=== PATIENT | male | born 1955 | race Caucasian/White ===

== ENCOUNTER 2019-06-27 11:31 | Inpatient (IN) ==
[2019-06-27 11:49] VITALS: BMI 29.0
--- NOTE | 2019-06-27 12:10 | DR.ABDMALE ---
HPI Time seen Time Seen by Provider: 06/27/19 11:56 PCP Primary Care Physician: PAMELA GUERRA HPI comment HPI Comment: PATIENT IS 64YR OLD WHITE MALE IN THE EMERGENCY ROOM WITH LLQ ABDOMINAL PAIN TIMES ONE DAY. PATIENT SAID PAIN STARTED A PERSISTENT DULL ACHE IN LLQ AREA. 04:00AM TODAY, SEVERE LLQ ANDOMINAL PAIN RADIATING TO THE BACK STARTED. PAIN WAS 10/10. PATIET TOOK HYDROCORDONE BEFORE COMING. NO FEVER OR DYSURIA. Complaint Chief Complaint Doctors Comments: ABDOMINAL PAIN Chief Complaint:: PT HAD A SUDDEN ONSET OF DULL ACHING CONSTANT LLQ PAIN THAT STARTED WEDNESDAY AFTERNOON. THIS MORNING AROUND 1AM PT STATES THAT PAIN SUDDENLY BECAME SEVERE AND IS NOW DESCRIBED CONSTANT SHARP STABBING. PAIN IS ALLEVIATED BY SITTING STILL AND WORSENED WITH GOING FROM SITTING TO STANDING POSITION. Self Treatment fo Chief Complaint: PT TOOK HYDROCODONE AROUND 8AM THIS MORNING WITH NO RELIEF Reviewed Nurses Notes Review: Yes Mode of arrival Mode of Arrival: Ambulatory Timing Onset of Chief Complaint: 06/27/19 Duration Duration: Constant Duration: Days Location Location: LLQ Severity Severity: Severe Context Onset: Suddenly and At Rest History of: Urolithiasis Modifying factors Worsening Factors: Movement Improving Factors: Lying Still Associated signs and symptoms Associated Signs and Symptoms: None Other history Other History: CHRONIC BACK PAIN. PMH PMH Past Medical History: Yes Past Medical History: GERD and Hypertension Past Medical History Comment: CERVICALGIA, DEGENERATIVE DISC DISEASE Past Surgical History: Yes Past Surgical History Comment: BACK SURGERY, KNEE SURGERY Family History History of Family Medical Conditions: Yes Family Medical History: Hypertension Social History Does patient currently use any type of tobacco product: Yes Have you used tobacco products in the last 12 months: Yes Type of Tobacco Use: Cigarettes Does any household member use tobacco: No Alcohol Use: None Do you use any recreational Drugs:: No Lives With: Family Lives Where: Home infectious screening In the last 2 months have you had wt loss of >10#?: NO Have you had fever, night sweats or hemotysis?: No Have you traveled outside the country in the last 6 months?: No Isolation: Standard ROS Review of Systems Constitutional: No Symptoms Reported and See HPI; negative Fever, Weakness and Fatigue Eyes: No Symptoms Reported and See HPI ENTM: No Symptoms Reported and See HPI Respiratoy: No Symptoms Reported and See HPI; negative Short of Breath and Wheezing Cardiovascular: No Symptoms Reported and See HPI; negative Chest Pain, Edema and Palpitations Gastrointestinal/Abdominal: See HPI and Abdominal Pain; negative Constipation, Diarrhea, Nausea and Vomiting Genitourinary: No Symptoms Reported and See HPI; negative Dysuria, Frequency and Hematuria Neurological: No Symptoms Reported; negative Headache, Weakness and Dizziness Musculoskeletal: No Symptoms Reported and See HPI; negative Back Pain and Muscle Pain Integumentary: No Symptoms Reported and See HPI; negative Change in Color, Rash and Juandice Hematologic/Lymphatic: No Symptoms Reported and See HPI; negative Easy Bleeding, Easy Bruising and Swollen Glands Endocrine: No Symptoms Reported and See HPI; negative Increased Thirst and In creased Urine Psychiatric: No Symptoms Reported and See HPI All Other Systems: Reviewed and Negative PE Vital Signs Vital Signs: Temp Pulse Pulse Resp BP BP Pulse Ox 06/27/19 15:22 98 F 54 L 20 153/91 98 06/27/19 14:30 50 L 159/80 95 06/27/19 14:15 52 L 95 06/27/19 14:00 56 L 171/88 94 L 06/27/19 13:45 50 L 94 L 06/27/19 13:30 48 L 159/96 94 L 06/27/19 13:15 49 L 95 06/27/19 13:00 52 L 159/89 95 06/27/19 12:45 51 L 95 06/27/19 12:31 167/80 93 L 06/27/19 12:15 55 L 95 06/27/19 12:00 57 L 157/89 95 06/27/19 11:45 64 95 06/27/19 11:44 70 154/91 93 L 06/27/19 11:43 98.8 F 67 22 154/91 94 L 06/27/19 11:42 62 95 General Limitations: No Limitations General Appearance: Alert and In No Apparent Distress Head Head Exam: Normal Inspection and Atraumatic Eyes Eye exam: Normal Appearance, PERRL and EOMI; negative Scleral Icterus and Conjunctival Injection ENT ENT Exam: Normal Exam, Normal Oropharynx, Normal External Ear Exam and TM's Normal Bilaterally Neck Neck Exam: Normal Inspection and Trachea Midline; negative Tenderness and Lymphadenopathy Chest Chest Inspection: Normal Inspection and Symmetric Chest Wall Rise; negative Tenderness Respiratory Respiratory Exam: Normal Lung Sounds Bilat; negative Accessory Muscle Use, Chest Wall Tenderness and Respiratory Distress Respiratory Exam: Bilateral: Clear to Auscultation Cardiovascular Cardiovascular Exam: Regular Rate, Normal Rhythm and Normal Heart Sounds; negative Systolic Murmur and Diastolic Murmur Abdominal Exam Abdominal Exam: Normal Inspection, Normal Bowel Sounds, Soft, Distention, Tenderness and Dimnished Bowel Sounds Abdominal Tenderness: LUQ, LLQ and Severe Rectal Rectal Exam: Deferred Back Back Exam: Normal Inspection; negative Tenderness, (R) CVA Tenderness, (L) CVA Tenderness, Paraspinal Tenderness and Vertebral Tenderness Extremeties Extremities Exam: Normal Inspection Exam: Male: Deferred Neurologic Neurological Exam: Alert, Oriented X3 and CN II-XII Intact Psychiatric Psychiatric Exam: Normal Affect and Normal Mood Skin Skin Exam: Warm, Dry, Intact and Normal Color MDM Additional Information Obtained From Additional information provided by: Family Differential Diagnosis Differential Diagnosis: Bowel Obstruction, Cholcystitis, Cholelethiasis, Constipation, Diverticular disease, Gastritus/PUD, Hernia, Inflammatory BD, Ischemic Bowel, Pancreatitis, Urinary tract infection and Urolithiasis COURSE Treatment Treatment: SEE ORDERS. Consultation Consultation Comments: SURGICAL CONSULT, DR. CORTES. HE IS IN ER EVALUATING PATIENT. SEE HIS NOTE. HE WANT PATIENT ADMITTED FOR OBSERVATION. DR. JONES, PCP ACCEPTED PATIENT FOT ADMISSION. ADMISSION ORDERS DONE. Education/Counseling Education/Counseling: Patient Educated On: Diagnosis ROR Labs Reviewed Laboratory Results Reviewed?: Yes Result Diagrams: 06/27/19 11:58 06/27/19 11:58 Laboratory: WBC 6.6 X10^3/uL (3.6-10.0) 06/27/19 11:58 RBC 4.58 X10^6/uL (4.7-6.0) L 06/27/19 11:58 Hgb 15.8 g/dL (13.5-18.0) 06/27/19 11:58 Hct 44.7 % (42.0-54.0) 06/27/19 11:58 MCV 97.5 fL (80.0-100.0) 06/27/19 11:58 MCH 34.5 pg (27.0-34.0) H 06/27/19 11:58 MCHC 35.3 g/dL (33.0-35.0) H 06/27/19 11:58 RDW 12.5 % (11.6-16.5) 06/27/19 11:58 Plt Count 197 X10^3/uL (150.0-450.0) 06/27/19 11:58 MPV 7.9 fL (7.4-11.0) 06/27/19 11:58 Neut % (Auto) 63.8 % (42.0-75.0) 06/27/19 11:58 Lymph % (Auto) 23.9 % (21.0-51.0) 06/27/19 11:58 [place] % (Auto) 8.1 % (0.0-13.0) 06/27/19 11:58 Eos % (Auto) 3.4 % (0.9-2.9) H 06/27/19 11:58 Baso % (Auto) 0.8 % (0.2-1.0) 06/27/19 11:58 Neut # (Auto) 4.2 x10^3/uL (2.2-4.8) 06/27/19 11:58 Lymph # (Auto) 1.6 X10^3/uL (1.3-2.9) 06/27/19 11:58 [place] # (Auto) 0.5 x10^3/uL (0.3-0.8) 06/27/19 11:58 Eos # (Auto) 0.2 x10^3/uL (0.0-0.2) 06/27/19 11:58 Baso # (Auto) 0.1 X10^3/uL (0.0-0.1) 06/27/19 11:58 Absolute Nucleated RBC 0.0 /100WBC 06/27/19 11:58 Sodium 137 mmol/L (136-145) 06/27/19 11:58 Corrected Sodium TNP 06/27/19 11:58 Potassium 3.7 mmol/L (3.5-5.1) 06/27/19 11:58 Chloride 102 mmol/L (98-107) 06/27/19 11:58 Carbon Dioxide 25.8 mmol/L (21-32) 06/27/19 11:58 BUN 14 mg/dL (7-18) 06/27/19 11:58 Creatinine 1.15 mg/dL (0.70-1.30) 06/27/19 11:58 Est GFR (MDRD) Af Amer > 60 (>60) 06/27/19 11:58 Est GFR (MDRD) Non-Af > 60 (>60) 06/27/19 11:58 Glucose 94 mg/dL (65-99) 06/27/19 11:58 Calcium 8.9 mg/dL (8.5-10.1) 06/27/19 11:58 Corrected Calcium TNP 06/27/19 11:58 Total Bilirubin 0.70 mg/dL (0.2-1.0) 06/27/19 11:58 AST 14 Units/L (15-37) L 06/27/19 11:58 ALT 19 Units/L (12-78) 06/27/19 11:58 Alkaline Phosphatase 83 Units/L (46-116) 06/27/19 11:58 Total Protein 7.6 g/dL (6.4-8.2) 06/27/19 11:58 Albumin 3.9 g/dL (3.4-5.0) 06/27/19 11:58 Globulin 3.7 g/dL (2.5-4.5) 06/27/19 11:58 Albumin/Globulin Ratio 1.1 Ratio (1.1-2.1) 06/27/19 11:58 Amylase 33 Units/L (25-115) 06/27/19 11:58 Lipase 65 Units/L (73-393) L 06/27/19 11:58 Specimen Type Clean catch urine 06/27/19 14:11 Urine Color Yellow (YELLOW) 06/27/19 14:11 Urine Appearance Clear (CLEAR) 06/27/19 14:11 Urine pH 6.0 (5.0 - 8.0) 06/27/19 14:11 Ur Specific [place] 1.015 (1.000-1.030) 06/27/19 14:11 Urine Protein Negative (NEGATIVE) 06/27/19 14:11 Urine Glucose (UA) Negative (NEGATIVE) 06/27/19 14:11 Urine Ketones Negative (NEGATIVE) 06/27/19 14:11 Urine Occult Blood Negative (NEGATIVE) 06/27/19 14:11 Urine Nitrite Negative (NEGATIVE) 06/27/19 14:11 Urine Bilirubin Negative (NEGATIVE) 06/27/19 14:11 Urine Urobilinogen Normal (NORMAL) 06/27/19 14:11 Ur Leukocyte Esterase Negative (NEGATIVE) 06/27/19 14:11 XRAY XRAY Interpreted by: Radiologist XRAY Findings: REPORT NOTED AND DISCUSS WITH PATIENT. Opioid Opioid Risk Tool Age (Herbert box if 16-45): No Total: 0 Total Score Risk Category: Low Risk Copyright: [facility] predicting aberrant behaviors Diagnosis Discharge Problem: Enlarged prostate Abdominal pain Qualifiers: Abdominal location: left lower quadrant Qualified Code(s): R10.32 - Left lower quadrant pain Instructions Forms: Excuse From Work
[2019-06-27 12:29] LABS: BASOPHILS # (AUTO) 0.1 X10^3/uL (0.0-0.1); BASOPHILS % (AUTO) 0.8 % (0.2-1.0); EOSINOPHILS # (AUTO) 0.2 x10^3/uL (0.0-0.2); EOSINOPHILS % (AUTO) 3.4 % (0.9-2.9); HEMATOCRIT 44.7 % (42.0-54.0); HEMOGLOBIN 15.8 g/dL (13.5-18.0); LYMPHOCYTES # (AUTO) 1.6 X10^3/uL (1.3-2.9); LYMPHOCYTES % (AUTO) 23.9 % (21.0-51.0); MEAN CORPUSCULAR HEMOGLOBIN 34.5 pg (27.0-34.0); MEAN CORPUSCULAR HGB CONC 35.3 g/dL (33.0-35.0); MEAN CORPUSCULAR VOLUME 97.5 fL (80.0-100.0); MEAN PLATELET VOLUME 7.9 fL (7.4-11.0); MONOCYTES # (AUTO) 0.5 x10^3/uL (0.3-0.8); MONOCYTES % (AUTO) 8.1 % (0.0-13.0); NEUTROPHILS # (AUTO) 4.2 x10^3/uL (2.2-4.8); NEUTROPHILS % (AUTO) 63.8 % (42.0-75.0); PLATELET COUNT 197 X10^3/uL (150.0-450.0); RED BLOOD COUNT 4.58 X10^6/uL (4.7-6.0); RED CELL DISTRIBUTION WIDTH 12.5 % (11.6-16.5); WHITE BLOOD COUNT 6.6 X10^3/uL (3.6-10.0)
[2019-06-27 12:37] LABS: ALANINE AMINOTRANSFERASE 19 Units/L (12-78); ALBUMIN 3.9 g/dL (3.4-5.0); ALKALINE PHOSPHATASE 83 Units/L (46-116); AMYLASE 33 Units/L (25-115); ASPARTATE AMINO TRANSFERASE 14 Units/L (15-37); BLOOD UREA NITROGEN 14 mg/dL (7-18); CALCIUM 8.9 mg/dL (8.5-10.1); CARBON DIOXIDE 25.8 mmol/L (21-32); CHLORIDE 102 mmol/L (98-107); CREATININE 1.15 mg/dL (0.70-1.30); LIPASE 65 Units/L (73-393); SODIUM 137 mmol/L (136-145); TOTAL PROTEIN 7.6 g/dL (6.4-8.2); eGFR NON BLACK RACES > 60 (>60)
--- NOTE | 2019-06-27 12:39 | CT ---
History: Sudden onset of left lower quadrant pain for 2 days Study: CT abdomen and pelvis without IV or oral contrast. Sagittal and coronal reformations were provided. Dose reduction techniques were utilized. The visualized lung bases are grossly clear. The liver and spleen are normal in size and configuration. The pancreas and adrenal glands are unremarkable. There is a 5 cm cyst in the upper pole of the right kidney with some curl for linear calcification in its wall. There is an adjacent 1.6 cm cyst. There is no hydronephrosis or focal renal calculus. The ureters are nondistended. The appendix is normal. The gallbladder is unremarkable. There is no bowel distention. There is sigmoid diverticulosis without evidence for stranding of fat planes or free fluid. The prostate is mildly enlarged and elevates the base of the urinary bladder. No significant bladder wall thickening is demonstrated. There are rods and screws for posterior fusion of L3 and L4 and L5-5 and S1 status post total laminectomies. Impression: 1. Cysts in the upper pole of the right kidney, no evidence for hydronephrosis or renal calculus. The largest cyst in the upper pole is a Bosniak class 2 2. Prostatic enlargement . Reported By:
[2019-06-27] MEDS ORDERED: NS 1000 ML 1,000 ML IV SCH (14:00)
[2019-06-27] MEDS ORDERED: DEMEROL INJ IVP PRN (14:15)
[2019-06-27] MEDS ORDERED: ZOFRAN INJ 4 MG VIAL IVP PRN (14:16)
[2019-06-27 14:24] LABS: BILIRUBIN,URINE NEGATIVE (NEGATIVE); BLOOD/HEMOGLOBIN,URINE NEGATIVE (NEGATIVE); GLUCOSE, URINE NEGATIVE (NEGATIVE); KETONES,URINE NEGATIVE (NEGATIVE); LEUKOCYTE ESTERASE ,URINE NEGATIVE (NEGATIVE); NITRITES,URINE NEGATIVE (NEGATIVE); PROTEIN,URINE NEGATIVE (NEGATIVE); UROBILINOGEN,URINE NORMAL (NORMAL)
[2019-06-27 14:27] LABS: APPEARANCE,URINE CLEAR (CLEAR); COLOR,URINE YELLOW (YELLOW)
[2019-06-27] MEDS: NS 1000 ML 1,000 ML IV SCH ×2 (14:27→22:24)
--- NOTE | 2019-06-27 14:33 | RAD ---
History: Sudden onset left lower quadrant pain Study: Portable upright AP chest Comparison: None Findings: The lungs are grossly clear and the heart and mediastinum are unremarkable. There is no edema or effusion or congestion. No significant bony abnormality is demonstrated. Impression: No evidence for acute cardiopulmonary disease Reported By:
--- NOTE | 2019-06-27 14:36 | RAD ---
History: Left lower quadrant pain for 2 days Study: KUB Findings: The bowel gas pattern is unremarkable. There has been extensive lower lumbar laminectomy with posterior fusion rods. No urinary tract calcification is demonstrated. Impression: No acute disease demonstrated Reported By:
[2019-06-27] MEDS: NEURONTIN CAP 300 MG PO SCH (20:34)
[2019-06-27] MEDS: ZANAFLEX PO PRN (20:34)
[2019-06-27] MEDS: CIPRO IV 400 MG PREMIX* 400 MG/200 ML IV.SOLN. IV SCH (21:55)
[2019-06-27] MEDS: FLAGYL IV PREMIX 500 MG BAG 500 MG/100 ML BAG IV SCH (21:55)
[2019-06-27] MEDS: DEMEROL INJ IVP PRN (22:00)
[2019-06-28 05:16] LABS: BASOPHILS % (AUTO) 0.8 % (0.2-1.0); EOSINOPHILS # (AUTO) 0.2 x10^3/uL (0.0-0.2); HEMATOCRIT 41.6 % (42.0-54.0); HEMOGLOBIN 14.5 g/dL (13.5-18.0); LYMPHOCYTES # (AUTO) 1.4 X10^3/uL (1.3-2.9); LYMPHOCYTES % (AUTO) 26.6 % (21.0-51.0); MEAN CORPUSCULAR HEMOGLOBIN 34.2 pg (27.0-34.0); MEAN CORPUSCULAR HGB CONC 34.8 g/dL (33.0-35.0); MEAN CORPUSCULAR VOLUME 98.4 fL (80.0-100.0); MEAN PLATELET VOLUME 8.2 fL (7.4-11.0); MONOCYTES # (AUTO) 0.5 x10^3/uL (0.3-0.8); MONOCYTES % (AUTO) 10.3 % (0.0-13.0); NEUTROPHILS % (AUTO) 58.3 % (42.0-75.0); PLATELET COUNT 176 X10^3/uL (150.0-450.0); RED BLOOD COUNT 4.23 X10^6/uL (4.7-6.0); RED CELL DISTRIBUTION WIDTH 12.8 % (11.6-16.5); WHITE BLOOD COUNT 5.2 X10^3/uL (3.6-10.0)
[2019-06-28 05:23] LABS: ALANINE AMINOTRANSFERASE 16 Units/L (12-78); ALBUMIN 3.1 g/dL (3.4-5.0); ALKALINE PHOSPHATASE 74 Units/L (46-116); AMYLASE 28 Units/L (25-115); ASPARTATE AMINO TRANSFERASE 12 Units/L (15-37); BLOOD UREA NITROGEN 10 mg/dL (7-18); CALCIUM 8.4 mg/dL (8.5-10.1); CARBON DIOXIDE 26.1 mmol/L (21-32); CHLORIDE 104 mmol/L (98-107); COR CA(FOR HYPOALB) 9.1 mg/dL (8.5-10.1); CREATININE 0.97 mg/dL (0.70-1.30); LIPASE 51 Units/L (73-393); SODIUM 137 mmol/L (136-145); TOTAL PROTEIN 6.2 g/dL (6.4-8.2); eGFR NON BLACK RACES > 60 (>60)
[2019-06-28] MEDS: DEMEROL INJ IVP PRN ×3 (06:00→19:35)
[2019-06-28] MEDS ORDERED: NS 100 ML IV + SPIKE MINIBAG* 100 ML IV ONE (06:08)
[2019-06-28] MEDS: NS 1000 ML 1,000 ML IV SCH ×3 (06:11→21:30)
[2019-06-28] MEDS: FLAGYL IV PREMIX 500 MG BAG 500 MG/100 ML BAG IV SCH ×3 (06:11→21:36)
[2019-06-28] MEDS: CIPRO IV 400 MG PREMIX* 400 MG/200 ML IV.SOLN. IV SCH ×2 (09:10→21:36)
[2019-06-28] MEDS: FOLIC ACID TAB 1 MG PO SCH (09:12)
[2019-06-28] MEDS: PROTONIX TAB 40 MG PO SCH (09:12)
[2019-06-28] MEDS: NEURONTIN CAP 300 MG PO SCH ×2 (09:12→21:36)
[2019-06-28] MEDS: CLARITIN PO SCH (09:12)
[2019-06-28] MEDS: ZESTRIL TAB 10 MG PO SCH (09:12)
[2019-06-28] MEDS: ZANAFLEX PO PRN (09:17)
--- NOTE | 2019-06-28 10:06 | CT ---
History: Left lower quadrant abdominal pain Study: CT of the abdomen and pelvis after oral and has mint of the gastrointestinal tract and after intravenous infusion of 75 mL Omnipaque 350. Sagittal and coronal reformations were provided. Dose reduction techniques were utilized. Comparison: Yesterday, exam without contrast Findings: There is minimal subsegmental atelectasis or consolidation in the posterior basilar segments of the lower lobes. There is no effusion. There is a tiny cyst in the right lobe of the liver under the diaphragm. The spleen and pancreas and adrenal glands are unremarkable. There are right renal cysts as described previously. There is no hydronephrosis. The gallbladder is unremarkable. There is sigmoid diverticulosis of the proximal sigmoid colon and diverticular disease of the distal descending colon. There is minimal stranding of adjacent fat planes about the distal left colon. There is no fluid collection or free air. The prostate is mildly enlarged. The urinary bladder is unremarkable. The appendix is normal. There is no adenopathy or ascites. Impression: 1. Distal left colonic and sigmoid colon diverticulosis with minimal changes suggesting diverticulitis 2. Bibasilar subsegmental atelectasis and/or consolidation Reported By:
--- NOTE | 2019-06-28 12:05 | DR.PROGNOT ---
Hospital Progress Notes - Progress Note for Day of: Progress Note Date: 06/28/19 - Chief Complaint Chief Complaint: still c/o moderate LLQ pain . no nausea or vomiting . CT today showed acute sigmoid diverticulitis . - Past Medical Family Social History Past Med/Fam/Surg Hx: No changes since H&P Allergies: Allergies No Known Drug Allergies Allergy (Verified 06/27/19 11:49) - Review Of Systems ROS: No change since H&P - Vital Signs Vital Signs: Temperature 97.9 F Pulse Rate [Left Brachial] 55 Pulse Rate 50 Respiratory Rate 18 Blood Pressure [Left Arm] 164/97 Blood Pressure 159/80 O2 Sat by Pulse Oximetry 96 - Physical Exam Oriented: Normal Eyes: Normal Ear: Normal Nose: Normal Respiratory: Normal Cardiovascular: Normal : Normal GI:Auscultation: Normal GI:Palpation: Normal GI: Tenderness: LLQ (full and tense abdomen . BS+ ..moderate to severe LLQ tenderness .) Speech Pattern: Clear, Appropriate - Laboratory and Diagnostics Result Diagrams: 06/28/19 04:11 06/28/19 04:11 Labs: Laboratory WBC 5.2 X10^3/uL (3.6-10.0) 06/28/19 04:11 RBC 4.23 X10^6/uL (4.7-6.0) L 06/28/19 04:11 Hgb 14.5 g/dL (13.5-18.0) 06/28/19 04:11 Hct 41.6 % (42.0-54.0) L 06/28/19 04:11 MCV 98.4 fL (80.0-100.0) 06/28/19 04:11 MCH 34.2 pg (27.0-34.0) H 06/28/19 04:11 MCHC 34.8 g/dL (33.0-35.0) 06/28/19 04:11 RDW 12.8 % (11.6-16.5) 06/28/19 04:11 Plt Count 176 X10^3/uL (150.0-450.0) 06/28/19 04:11 MPV 8.2 fL (7.4-11.0) 06/28/19 04:11 Neut % (Auto) 58.3 % (42.0-75.0) 06/28/19 04:11 Lymph % (Auto) 26.6 % (21.0-51.0) 06/28/19 04:11 [place] % (Auto) 10.3 % (0.0-13.0) 06/28/19 04:11 Eos % (Auto) 4.0 % (0.9-2.9) H 06/28/19 04:11 Baso % (Auto) 0.8 % (0.2-1.0) 06/28/19 04:11 Neut # (Auto) 3.0 x10^3/uL (2.2-4.8) 06/28/19 04:11 Lymph # (Auto) 1.4 X10^3/uL (1.3-2.9) 06/28/19 04:11 [place] # (Auto) 0.5 x10^3/uL (0.3-0.8) 06/28/19 04:11 Eos # (Auto) 0.2 x10^3/uL (0.0-0.2) 06/28/19 04:11 Baso # (Auto) 0.0 X10^3/uL (0.0-0.1) 06/28/19 04:11 Absolute Nucleated RBC 0.1 /100WBC 06/28/19 04:11 Sodium 137 mmol/L (136-145) 06/28/19 04:11 Corrected Sodium TNP 06/28/19 04:11 Potassium 4.3 mmol/L (3.5-5.1) 06/28/19 04:11 Chloride 104 mmol/L (98-107) 06/28/19 04:11 Carbon Dioxide 26.1 mmol/L (21-32) 06/28/19 04:11 BUN 10 mg/dL (7-18) 06/28/19 04:11 Creatinine 0.97 mg/dL (0.70-1.30) 06/28/19 04:11 Est GFR (MDRD) Af Amer > 60 (>60) 06/28/19 04:11 Est GFR (MDRD) Non-Af > 60 (>60) 06/28/19 04:11 Glucose 94 mg/dL (65-99) 06/28/19 04:11 Calcium 8.4 mg/dL (8.5-10.1) L 06/28/19 04:11 Corrected Calcium 9.1 mg/dL (8.5-10.1) 06/28/19 04:11 Total Bilirubin 0.70 mg/dL (0.2-1.0) 06/28/19 04:11 AST 12 Units/L (15-37) L 06/28/19 04:11 ALT 16 Units/L (12-78) 06/28/19 04:11 Alkaline Phosphatase 74 Units/L (46-116) 06/28/19 04:11 Total Protein 6.2 g/dL (6.4-8.2) L 06/28/19 04:11 Albumin 3.1 g/dL (3.4-5.0) L 06/28/19 04:11 Globulin 3.1 g/dL (2.5-4.5) 06/28/19 04:11 Albumin/Globulin Ratio 1.0 Ratio (1.1-2.1) L 06/28/19 04:11 Amylase 28 Units/L (25-115) 06/28/19 04:11 Lipase 51 Units/L (73-393) L 06/28/19 04:11 Total PSA 2.06 ng/mL (0.13-4.0) 06/27/19 11:58 Specimen Type Clean catch urine 06/27/19 14:11 Urine Color Yellow (YELLOW) 06/27/19 14:11 Urine Appearance Clear (CLEAR) 06/27/19 14:11 Urine pH 6.0 (5.0 - 8.0) 06/27/19 14:11 Ur Specific [place] 1.015 (1.000-1.030) 06/27/19 14:11 Urine Protein Negative (NEGATIVE) 06/27/19 14:11 Urine Glucose (UA) Negative (NEGATIVE) 06/27/19 14:11 Urine Ketones Negative (NEGATIVE) 06/27/19 14:11 Urine Occult Blood Negative (NEGATIVE) 06/27/19 14:11 Urine Nitrite Negative (NEGATIVE) 06/27/19 14:11 Urine Bilirubin Negative (NEGATIVE) 06/27/19 14:11 Urine Urobilinogen Normal (NORMAL) 06/27/19 14:11 Ur Leukocyte Esterase Negative (NEGATIVE) 06/27/19 14:11 - Assessment and Plan 1: acute sigmoid diverticulitis . same IV ATB. only liquid diet . - Problem Patient Problems: Patient Problems Abdominal pain (Acute) R10.9 Enlarged prostate (Acute) N40.0
[2019-06-28] MEDS: ZANAFLEX PO SCH (21:36)
--- NOTE | 2019-06-28 21:57 | DR.H&P ---
H&P - History & Physical for Day of: H&P Date: 06/27/19 - Chief Complaint Chief Complaint: ABDOMINAL PAIN - History of Present Illness History of Present Illness: IS A 64 YEAR OLD PATIENT OF OURS WHO PRESENTED TO THE ER WITH COMPLAINTS OF SUDDEN ONSET LLQ PAIN THAT BEGAN TWO DAYS PRIOR TO ARRIVAL. HE REPORTS THAT PAIN HAS PROGRESSIVELY GOTTEN WORSE. PAIN IS DESCRIBED SHARP/STABBING. PAIN RADIATES TO THE BACK. HE REPORTS TAKING HYDROCODONE AT HOME WITHOUT IMPROVEMENT IN SYMPTOMS. HE DENIES FEVER OR DYSURIA. ON ARRIVAL TO THE ER, VITALS WERE 98.8-67-22-94%-154/91. LABS WERE OBTAINED. ABNORMAL LAB VALUES INCLUDE THE FOLLOWING: RBC 4.58, AST 14, LIPASE 65. KUB OBTAINED AND REVEALED: NO ACUTE DISEASE DEMONSTRATED. AN ABDOMEN/PELVIS CT WITHOUT CONTRAST WAS OBTAINED AND REVEALED: Cysts in the upper pole of the right kidney, no evidence for hydronephrosis or renal calculus. The largest cyst in the upper pole is a Bosniak class 2. Prostatic enlargement. WAS CONSULTED AND PLANS TO OBTAIN AN ABDOMEN/PELVIS WITH CONTRAST IN THE MORNING. HE WAS GIVEN DEMEROL 25MG IV X 1 DOSE WITH ONLY SLIGHT IMPROVEMENT IN SYMPTOMS. HE WAS ADMITTED FOR FURTHER EVALUATION AND TREATMENT OF ABDOMINAL PAIN, RULE OUT DIVERTICULITIS. WE WILL START IV FLAGY, IV CIPRO, DEMEROL 25MG IV Q4H PRN, ZOFRAN 4MG IV Q6H PRN, AND NS AT 125ML/HR. OTHERWISE, WE WILL FOLLOW UP WITH AM LABS AND CT AND CONTINUE TO MONITOR. - Past Medical History Past Medical History: Hypertension, GERD - Past Surgical History Surgical History: Ortho Surgery - Family History Family Medical History: Hypertension - Social History Does patient currently use any type of tobacco product: Yes Have you used tobacco products in the last 12 months: Yes Type of Tobacco Use: Cigarettes Does any household member use tobacco: No Alcohol Use: None Drug Use: None Prescription drug monitoring program results: PDMP was not reviewed - Medications Home Medications: No Known Drug Allergies Allergy (Verified 06/27/19 11:49) CONTINUE taking the following medications dexlansoprazole [Dexilant] 60 mg PO DAILY 06/27/19 [History] folic acid 1 mg PO DAILY 06/27/19 [History] gabapentin 300 mg PO BID 06/27/19 [History] hydrocodone-acetaminophen 1 tab PO Q4H PRN 06/27/19 [History] lisinopril 10 mg PO DAILY 06/27/19 [History] ranitidine HCl [Zantac] 150 mg PO BID 06/27/19 [History] tizanidine [Zanaflex] 4 mg PO BID PRN 06/27/19 [History] - Review of Systems Constitutional: Weakness Eyes: No Symptoms Reported ENT: No Symptoms Reported Respiratory: No Symptoms Reported Cardiovascular: No Symptoms Reported Gastrointestinal: Nausea, Abdominal Pain Genitourinary: No Symptoms Reported Musculoskeletal: No Symptoms Reported Skin: No Symptoms Reported Neurological: No Symptoms Reported - Physical Exam Vital Signs: Temperature 98.1 F Pulse Rate [Left Brachial] 56 Pulse Rate 60 Respiratory Rate 18 Blood Pressure [Left Arm] 132/73 Blood Pressure 159/80 O2 Sat by Pulse Oximetry 97 Oriented: Normal Eyes: Normal Ear: Normal Nose: Normal Throat: Normal Respiratory: Diminished Throughout Cardiovascular: Normal. negative: S3, S4, Murmur : Normal Auscultation: Bowel Sounds: Normal Palpation: Normal Tenderness: LLQ, Moderate. negative: Rebound, Guarding, Rigidity Skin: Normal Musculoskeletal: Normal Psychiatric: Normal Mood Description: Calm Affect: Normal Speech Pattern: Clear - Assessment/Plan (1) Abdominal pain Qualifiers: Abdominal location: left lower quadrant Qualified Code(s): R10.32 - Left lower quadrant pain Status: Acute Plan: ADMIT, IV CIPRO, IV FLAGYL, IV DEMEROL, IV ZOFRAN, NORMAL SALINE AT 125ML/HR, REPEAT ABDOMEN/PELVIS CT IN AM, CONTINUE TO MONITOR (2) Enlarged prostate Status: Acute - Allergies Allergies/Adverse Reactions: Allergies Allergy/AdvReac Type Severity Reaction Status Date / Time No Known Drug Allergies Allergy Verified 06/27/19 11:49
[2019-06-29] MEDS: DEMEROL INJ IVP PRN ×2 (02:55→13:56)
[2019-06-29] MEDS: NS 1000 ML 1,000 ML IV SCH ×3 (04:51→18:50)
[2019-06-29] MEDS: FLAGYL IV PREMIX 500 MG BAG 500 MG/100 ML BAG IV SCH ×3 (05:57→21:28)
[2019-06-29 06:10] LABS: EOSINOPHILS # (AUTO) 0.2 x10^3/uL (0.0-0.2); EOSINOPHILS % (AUTO) 4.7 % (0.9-2.9); HEMOGLOBIN 13.7 g/dL (13.5-18.0); LYMPHOCYTES # (AUTO) 1.3 X10^3/uL (1.3-2.9); LYMPHOCYTES % (AUTO) 25.1 % (21.0-51.0); MEAN CORPUSCULAR HEMOGLOBIN 34.4 pg (27.0-34.0); MEAN CORPUSCULAR HGB CONC 35.2 g/dL (33.0-35.0); MEAN CORPUSCULAR VOLUME 97.6 fL (80.0-100.0); MEAN PLATELET VOLUME 8.2 fL (7.4-11.0); MONOCYTES # (AUTO) 0.5 x10^3/uL (0.3-0.8); MONOCYTES % (AUTO) 10.7 % (0.0-13.0); NEUTROPHILS % (AUTO) 58.5 % (42.0-75.0); PLATELET COUNT 161 X10^3/uL (150.0-450.0); RED CELL DISTRIBUTION WIDTH 12.6 % (11.6-16.5); WHITE BLOOD COUNT 5.1 X10^3/uL (3.6-10.0)
[2019-06-29 06:31] LABS: ALANINE AMINOTRANSFERASE 13 Units/L (12-78); ALBUMIN 2.9 g/dL (3.4-5.0); ALKALINE PHOSPHATASE 72 Units/L (46-116); ASPARTATE AMINO TRANSFERASE 12 Units/L (15-37); BLOOD UREA NITROGEN 9 mg/dL (7-18); CALCIUM 8.2 mg/dL (8.5-10.1); CARBON DIOXIDE 24.9 mmol/L (21-32); COR CA(FOR HYPOALB) 9.1 mg/dL (8.5-10.1); eGFR NON BLACK RACES > 60 (>60)
[2019-06-29 07:30] LABS: CHLORIDE 104 mmol/L (98-107); SODIUM 136 mmol/L (136-145)
[2019-06-29] MEDS: PROTONIX TAB 40 MG PO SCH (08:48)
[2019-06-29] MEDS: ZESTRIL TAB 10 MG PO SCH (08:48)
[2019-06-29] MEDS: NEURONTIN CAP 300 MG PO SCH ×2 (08:48→21:30)
[2019-06-29] MEDS: CLARITIN PO SCH (08:48)
[2019-06-29] MEDS: FOLIC ACID TAB 1 MG PO SCH (08:49)
[2019-06-29] MEDS: CIPRO IV 400 MG PREMIX* 400 MG/200 ML IV.SOLN. IV SCH ×2 (08:49→21:28)
[2019-06-29] MEDS: ZANAFLEX PO SCH ×2 (08:49→21:30)
--- NOTE | 2019-06-29 09:02 | PCM.PROG ---
Progress Note - Progress Note for Day of Date of Exam: 06/28/19 - Subjective Subjective: WAS ADMITTED FOR ABDOMINAL PAIN, RULE OUT DIVERTICULITIS, AND ENLARGED PROSTATE. TODAY, HE IS ALERT AND ORIENTED, LYING IN BED ON MORNING ROUNDS. HE CONTINUES WITH COMPLAINTS OF LLQ PAIN AND NAUSEA. ON EXAMINATION, HEART IS REGULAR IN RATE AND RHYTHM. BILATERAL LUNGS ARE NOTED WITH DIMINISHED LUNG SOUNDS THROUGHOUT. ABDOMEN IS ROUND, SOFT, AND NOTED WITH TENDERNESS TO LLQ. NORMAL BOWEL SOUNDS NOTED IN ALL QUADRANTS. HIS VITALS THIS MORNING ARE: 97.9-55-18-96%-164/97. LABS WERE OBTAINED. ABNORMAL LAB VALUES INCLUDE THE FOLLOWING: RBC 4.23, HCT 41.6, CALCIUM 8.4, AST 12, TOTAL PROTEIN 6.2, ALBUMIN 3.1, LIPASE 51. WE REPEATED AN ABDOMEN/PELVIS CT WITH CONTRAST THIS MORNING. IT REVEALED: Distal left colonic and sigmoid colon diverticulosis with minimal changes suggesting diverticulitis. Bibasilar subsegmental atelectasis and/or consolidation. HE IS CURRENTLY RECEIVING IV FLAGY, IV CIPRO, DEMEROL 25MG IV Q4H PRN, ZOFRAN 4MG IV Q6H PRN, AND NS AT 125ML/HR. WE WILL CONTINUE WITH CURRENT PLAN OF CARE TODAY AND CHANGE HIM TO INPATIENT STATUS FOR TREATMENT OF DIVERTICULOSIS. OTHERWISE, WE WILL FOLLOW UP WITH AM LABS AND CONTINUE TO MONITOR. - Past Medical Family Social History Past Med/Fam/Surg Hx: No changes since H&P Allergies: Allergies No Known Drug Allergies Allergy (Verified 06/27/19 11:49) - Review of Systems ROS: No change since H&P - Vital Signs and I&O's Vital Signs: Temperature 98 F Pulse Rate [Left Brachial] 54 Pulse Rate 60 Respiratory Rate 18 Blood Pressure [Left Arm] 167/90 Blood Pressure 159/80 O2 Sat by Pulse Oximetry 92 Intake and Output: Intake & Output 06/26/19 06/27/19 06/28/19 06/29/19 11:59 11:59 11:59 11:59 Intake Total 1680 / 1680 3010 / 3010 Balance 1680 / 1680 3010 / 3010 - Physical Exam Oriented: Normal Eyes: Normal Ear: Normal Nose: Normal Throat: Normal Respiratory: Normal Cardiovascular: Normal. negative: S3, S4, Murmur : Normal Auscultation: Bowel Sounds: Normal Palpation: Normal Tenderness: LLQ, Moderate. negative: Rebound, Guarding, Rigidity Skin: Normal Musculoskeletal: Normal Psychiatric: Normal Mood Description: Calm Affect: Normal Speech Pattern: Clear, Appropriate - Laboratory and Diagnostics Result Diagrams: 06/29/19 04:41 06/29/19 04:41 Labs: Laboratory WBC 5.1 X10^3/uL (3.6-10.0) 06/29/19 04:41 RBC 4.00 X10^6/uL (4.7-6.0) L 06/29/19 04:41 Hgb 13.7 g/dL (13.5-18.0) 06/29/19 04:41 Hct 39.0 % (42.0-54.0) L 06/29/19 04:41 MCV 97.6 fL (80.0-100.0) 06/29/19 04:41 MCH 34.4 pg (27.0-34.0) H 06/29/19 04:41 MCHC 35.2 g/dL (33.0-35.0) H 06/29/19 04:41 RDW 12.6 % (11.6-16.5) 06/29/19 04:41 Plt Count 161 X10^3/uL (150.0-450.0) 06/29/19 04:41 MPV 8.2 fL (7.4-11.0) 06/29/19 04:41 Neut % (Auto) 58.5 % (42.0-75.0) 06/29/19 04:41 Lymph % (Auto) 25.1 % (21.0-51.0) 06/29/19 04:41 [place] % (Auto) 10.7 % (0.0-13.0) 06/29/19 04:41 Eos % (Auto) 4.7 % (0.9-2.9) H 06/29/19 04:41 Baso % (Auto) 1.0 % (0.2-1.0) 06/29/19 04:41 Neut # (Auto) 3.0 x10^3/uL (2.2-4.8) 06/29/19 04:41 Lymph # (Auto) 1.3 X10^3/uL (1.3-2.9) 06/29/19 04:41 [place] # (Auto) 0.5 x10^3/uL (0.3-0.8) 06/29/19 04:41 Eos # (Auto) 0.2 x10^3/uL (0.0-0.2) 06/29/19 04:41 Baso # (Auto) 0.0 X10^3/uL (0.0-0.1) 06/29/19 04:41 Absolute Nucleated RBC 0.1 /100WBC 06/29/19 04:41 Sodium 136 mmol/L (136-145) 06/29/19 04:41 Corrected Sodium TNP 06/29/19 04:41 Potassium 4.0 mmol/L (3.5-5.1) 06/29/19 04:41 Chloride 104 mmol/L (98-107) 06/29/19 04:41 Carbon Dioxide 24.9 mmol/L (21-32) 06/29/19 04:41 BUN 9 mg/dL (7-18) 06/29/19 04:41 Creatinine 1.00 mg/dL (0.70-1.30) 06/29/19 04:41 Est GFR (MDRD) Af Amer > 60 (>60) 06/29/19 04:41 Est GFR (MDRD) Non-Af > 60 (>60) 06/29/19 04:41 Glucose 90 mg/dL (65-99) 06/29/19 04:41 Calcium 8.2 mg/dL (8.5-10.1) L 06/29/19 04:41 Corrected Calcium 9.1 mg/dL (8.5-10.1) 06/29/19 04:41 Total Bilirubin 0.50 mg/dL (0.2-1.0) 06/29/19 04:41 AST 12 Units/L (15-37) L 06/29/19 04:41 ALT 13 Units/L (12-78) 06/29/19 04:41 Alkaline Phosphatase 72 Units/L (46-116) 06/29/19 04:41 Total Protein 6.0 g/dL (6.4-8.2) L 06/29/19 04:41 Albumin 2.9 g/dL (3.4-5.0) L 06/29/19 04:41 Globulin 3.1 g/dL (2.5-4.5) 06/29/19 04:41 Albumin/Globulin Ratio 0.9 Ratio (1.1-2.1) L 06/29/19 04:41 Amylase 28 Units/L (25-115) 06/28/19 04:11 Lipase 51 Units/L (73-393) L 06/28/19 04:11 Total PSA 2.06 ng/mL (0.13-4.0) 06/27/19 11:58 Specimen Type Clean catch urine 06/27/19 14:11 Urine Color Yellow (YELLOW) 06/27/19 14:11 Urine Appearance Clear (CLEAR) 06/27/19 14:11 Urine pH 6.0 (5.0 - 8.0) 06/27/19 14:11 Ur Specific [place] 1.015 (1.000-1.030) 06/27/19 14:11 Urine Protein Negative (NEGATIVE) 06/27/19 14:11 Urine Glucose (UA) Negative (NEGATIVE) 06/27/19 14:11 Urine Ketones Negative (NEGATIVE) 06/27/19 14:11 Urine Occult Blood Negative (NEGATIVE) 06/27/19 14:11 Urine Nitrite Negative (NEGATIVE) 06/27/19 14:11 Urine Bilirubin Negative (NEGATIVE) 06/27/19 14:11 Urine Urobilinogen Normal (NORMAL) 06/27/19 14:11 Ur Leukocyte Esterase Negative (NEGATIVE) 06/27/19 14:11 - Plan (1) Diverticulitis Status: Acute Plan: IV CIPRO, IV FLAGYL, IV DEMEROL, IV ZOFRAN, NORMAL SALINE AT 125ML/HR, CONTINUE TO MONITOR (2) Abdominal pain Status: Acute Qualifiers: Abdominal location: left lower quadrant Qualified Code(s): R10.32 - Left lower quadrant pain Plan: IV CIPRO, IV FLAGYL, IV DEMEROL, IV ZOFRAN, NORMAL SALINE AT 125ML/HR, CONTINUE TO MONITOR (3) Enlarged prostate Status: Acute
--- NOTE | 2019-06-29 11:15 | DR.PROGNOT ---
Hospital Progress Notes - Progress Note for Day of: Progress Note Date: 06/29/19 - Chief Complaint Chief Complaint: less abdominal pain . no nausea or vomiting. had small BM , no bleeding . CBC and CMP are WNL . afebrile today . - Past Medical Family Social History Past Med/Fam/Surg Hx: No changes since H&P Allergies: Allergies No Known Drug Allergies Allergy (Verified 06/27/19 11:49) - Review Of Systems ROS: No change since H&P - Vital Signs Vital Signs: Temperature 98 F Pulse Rate [Left Brachial] 54 Pulse Rate 60 Respiratory Rate 18 Blood Pressure [Left Arm] 167/90 Blood Pressure 159/80 O2 Sat by Pulse Oximetry 92 - Physical Exam Oriented: Normal Eyes: Normal Ear: Normal Nose: Normal Throat: Normal Respiratory: Normal Cardiovascular: Normal. negative: S3, S4, Murmur : Normal GI:Auscultation: Normal GI:Palpation: Normal GI: Tenderness: LLQ (abdomen still tense with LLQ tenderness ,no rebound today , BS+), Moderate. negative: Rebound, Guarding, Rigidity Skin: Normal Musculoskeletal: Normal Psychiatric: Normal Mood Description: Calm Affect: Normal Speech Pattern: Clear, Appropriate - Laboratory and Diagnostics Result Diagrams: 06/29/19 04:41 06/29/19 04:41 Labs: Laboratory WBC 5.1 X10^3/uL (3.6-10.0) 06/29/19 04:41 RBC 4.00 X10^6/uL (4.7-6.0) L 06/29/19 04:41 Hgb 13.7 g/dL (13.5-18.0) 06/29/19 04:41 Hct 39.0 % (42.0-54.0) L 06/29/19 04:41 MCV 97.6 fL (80.0-100.0) 06/29/19 04:41 MCH 34.4 pg (27.0-34.0) H 06/29/19 04:41 MCHC 35.2 g/dL (33.0-35.0) H 06/29/19 04:41 RDW 12.6 % (11.6-16.5) 06/29/19 04:41 Plt Count 161 X10^3/uL (150.0-450.0) 06/29/19 04:41 MPV 8.2 fL (7.4-11.0) 06/29/19 04:41 Neut % (Auto) 58.5 % (42.0-75.0) 06/29/19 04:41 Lymph % (Auto) 25.1 % (21.0-51.0) 06/29/19 04:41 [place] % (Auto) 10.7 % (0.0-13.0) 06/29/19 04:41 Eos % (Auto) 4.7 % (0.9-2.9) H 06/29/19 04:41 Baso % (Auto) 1.0 % (0.2-1.0) 06/29/19 04:41 Neut # (Auto) 3.0 x10^3/uL (2.2-4.8) 06/29/19 04:41 Lymph # (Auto) 1.3 X10^3/uL (1.3-2.9) 06/29/19 04:41 [place] # (Auto) 0.5 x10^3/uL (0.3-0.8) 06/29/19 04:41 Eos # (Auto) 0.2 x10^3/uL (0.0-0.2) 06/29/19 04:41 Baso # (Auto) 0.0 X10^3/uL (0.0-0.1) 06/29/19 04:41 Absolute Nucleated RBC 0.1 /100WBC 06/29/19 04:41 Sodium 136 mmol/L (136-145) 06/29/19 04:41 Corrected Sodium TNP 06/29/19 04:41 Potassium 4.0 mmol/L (3.5-5.1) 06/29/19 04:41 Chloride 104 mmol/L (98-107) 06/29/19 04:41 Carbon Dioxide 24.9 mmol/L (21-32) 06/29/19 04:41 BUN 9 mg/dL (7-18) 06/29/19 04:41 Creatinine 1.00 mg/dL (0.70-1.30) 06/29/19 04:41 Est GFR (MDRD) Af Amer > 60 (>60) 06/29/19 04:41 Est GFR (MDRD) Non-Af > 60 (>60) 06/29/19 04:41 Glucose 90 mg/dL (65-99) 06/29/19 04:41 Calcium 8.2 mg/dL (8.5-10.1) L 06/29/19 04:41 Corrected Calcium 9.1 mg/dL (8.5-10.1) 06/29/19 04:41 Total Bilirubin 0.50 mg/dL (0.2-1.0) 06/29/19 04:41 AST 12 Units/L (15-37) L 06/29/19 04:41 ALT 13 Units/L (12-78) 06/29/19 04:41 Alkaline Phosphatase 72 Units/L (46-116) 06/29/19 04:41 Total Protein 6.0 g/dL (6.4-8.2) L 06/29/19 04:41 Albumin 2.9 g/dL (3.4-5.0) L 06/29/19 04:41 Globulin 3.1 g/dL (2.5-4.5) 06/29/19 04:41 Albumin/Globulin Ratio 0.9 Ratio (1.1-2.1) L 06/29/19 04:41 Amylase 28 Units/L (25-115) 06/28/19 04:11 Lipase 51 Units/L (73-393) L 06/28/19 04:11 Total PSA 2.06 ng/mL (0.13-4.0) 06/27/19 11:58 Specimen Type Clean catch urine 06/27/19 14:11 Urine Color Yellow (YELLOW) 06/27/19 14:11 Urine Appearance Clear (CLEAR) 06/27/19 14:11 Urine pH 6.0 (5.0 - 8.0) 06/27/19 14:11 Ur Specific [place] 1.015 (1.000-1.030) 06/27/19 14:11 Urine Protein Negative (NEGATIVE) 06/27/19 14:11 Urine Glucose (UA) Negative (NEGATIVE) 06/27/19 14:11 Urine Ketones Negative (NEGATIVE) 06/27/19 14:11 Urine Occult Blood Negative (NEGATIVE) 06/27/19 14:11 Urine Nitrite Negative (NEGATIVE) 06/27/19 14:11 Urine Bilirubin Negative (NEGATIVE) 06/27/19 14:11 Urine Urobilinogen Normal (NORMAL) 06/27/19 14:11 Ur Leukocyte Esterase Negative (NEGATIVE) 06/27/19 14:11 - Assessment and Plan 1: acute sigmoid diverticulitis. ( subsiding ). same IV ATB. only liquid diet . will follow as OP and repeat colonoscopy .. - Problem Patient Problems: Patient Problems Abdominal pain (Acute) R10.9 Enlarged prostate (Acute) N40.0 Diverticulitis (Acute) K57.92
[2019-06-30] MEDS ORDERED: NS 100 ML IV 100 ML IV ONE (01:00)
[2019-06-30] MEDS: NS 1000 ML 1,000 ML IV SCH ×3 (01:37→06:06)
[2019-06-30] MEDS: DEMEROL INJ IVP PRN ×2 (03:01→07:58)
[2019-06-30] MEDS: FLAGYL IV PREMIX 500 MG BAG 500 MG/100 ML BAG IV SCH (06:06)
[2019-06-30 06:15] LABS: BASOPHILS % (AUTO) 0.7 % (0.2-1.0); EOSINOPHILS # (AUTO) 0.3 x10^3/uL (0.0-0.2); EOSINOPHILS % (AUTO) 5.3 % (0.9-2.9); HEMATOCRIT 38.9 % (42.0-54.0); HEMOGLOBIN 13.8 g/dL (13.5-18.0); LYMPHOCYTES # (AUTO) 1.4 X10^3/uL (1.3-2.9); LYMPHOCYTES % (AUTO) 30.3 % (21.0-51.0); MEAN CORPUSCULAR HEMOGLOBIN 34.5 pg (27.0-34.0); MEAN CORPUSCULAR HGB CONC 35.5 g/dL (33.0-35.0); MEAN CORPUSCULAR VOLUME 97.2 fL (80.0-100.0); MEAN PLATELET VOLUME 8.1 fL (7.4-11.0); MONOCYTES # (AUTO) 0.5 x10^3/uL (0.3-0.8); MONOCYTES % (AUTO) 11.3 % (0.0-13.0); NEUTROPHILS # (AUTO) 2.5 x10^3/uL (2.2-4.8); NEUTROPHILS % (AUTO) 52.4 % (42.0-75.0); PLATELET COUNT 168 X10^3/uL (150.0-450.0); RED CELL DISTRIBUTION WIDTH 12.5 % (11.6-16.5); WHITE BLOOD COUNT 4.8 X10^3/uL (3.6-10.0)
[2019-06-30 06:31] LABS: ALANINE AMINOTRANSFERASE 14 Units/L (12-78); ALBUMIN 2.9 g/dL (3.4-5.0); ALKALINE PHOSPHATASE 74 Units/L (46-116); ASPARTATE AMINO TRANSFERASE 12 Units/L (15-37); BLOOD UREA NITROGEN 9 mg/dL (7-18); CALCIUM 8.4 mg/dL (8.5-10.1); CARBON DIOXIDE 24.1 mmol/L (21-32); CHLORIDE 105 mmol/L (98-107); COR CA(FOR HYPOALB) 9.3 mg/dL (8.5-10.1); CREATININE 1.05 mg/dL (0.70-1.30); SODIUM 137 mmol/L (136-145); TOTAL PROTEIN 6.1 g/dL (6.4-8.2); eGFR NON BLACK RACES > 60 (>60)
--- NOTE | 2019-06-30 07:24 | CT ---
HISTORY: Follow-up diverticulitis Study: CT abdomen pelvis with contrast Comparison: 06/28/2019 Technique: Axial post-contrast images with coronal and sagittal reformats. Dose reduction procedures were used with mA/kv adjusted for body size. Findings: The lung bases are clear with the exception of mild bibasilar subsegmental atelectasis and dependent atelectatic change. The liver, spleen, adrenal glands, and pancreas are within normal limits. No opaque stones are visible within the gallbladder. The kidneys are unobstructed and without stones or masses. Right renal cysts are present. No ureteral calculi are identified. The appendix is normal. The abdominal aorta demonstrates mild calcific atherosclerotic change but no significant dilatation. No intraperitoneal or retroperitoneal lymphadenopathy of significance is identified. There are no findings suggestive colitis or enteritis. There is diverticulosis of the sigmoid colon present. There are no changes suggestive of diverticulitis on today's examination. Examination of the pelvis demonstrated no evidence for pelvic masses, pelvic fluid, or pelvic lymphadenopathy. The prostate gland is prominent most significantly the median lobe. Prostate calcifications are present. The no lytic or blastic skeletal lesions of significance are identified. Postsurgical changes are present in the lower lumbar spine with hardware present. IMPRESSION: Sigmoid diverticulosis with no residual changes to suggest diverticulitis at this time. Right renal cysts Reported By:
[2019-06-30] MEDS: CLARITIN PO SCH (08:01)
[2019-06-30] MEDS: ZANAFLEX PO SCH (08:01)
[2019-06-30] MEDS: FOLIC ACID TAB 1 MG PO SCH (08:02)
[2019-06-30] MEDS: ZESTRIL TAB 10 MG PO SCH (08:02)
[2019-06-30] MEDS: NEURONTIN CAP 300 MG PO SCH (08:03)
[2019-06-30] MEDS: PROTONIX TAB 40 MG PO SCH (08:04)
[2019-06-30] MEDS: CIPRO IV 400 MG PREMIX* 400 MG/200 ML IV.SOLN. IV SCH (08:04)
[2019-06-30 12:06] VITALS: BP 141/89
== END 2019-06-30 12:05 | disposition home or self-care (01) | DRG 392 ==
LOC: ER 11:36 → MED/SURG 11:36 → OBS 06-28 10:26 → MED/SURG 06-28 10:27
PROVIDERS: ADMIT Internal Medicine; ATTEND Internal Medicine
DX: N40.0 Benign prostatic hyperplasia without lower urinary tract symptoms; I10 Essential (primary) hypertension; M51.36 Other intervertebral disc degeneration, lumbar region; K57.92 Diverticulitis of intestine, part unspecified, without perforation or abscess without bleeding; R10.32 Left lower quadrant pain; K57.30 Diverticulosis of large intestine without perforation or abscess without bleeding
CPT/HCPCS: 36415; 71010; 71045; 74000; 74018; 74176; 74177; 80053; 81003; 82150; 82378; 83690; 84153; 85025; 93005; 94640; 94760; 96365; 99284; A4216; A4222; S0030; G0378; J0744; J2175; J7030; J7050